=== PATIENT | male | born 1985 | race African-American/Black ===

== ENCOUNTER 2018-04-18 09:08 | Emergency (ER) | payer SELFPAY ==
[~2018-04-18] VITALS: Ht 193 cm; Wt 118.2 kg
[~2018-04-18 09:08] MED LIST: AMOXICILLIN500 MG PO; TAM75CAP PO
[2018-04-18] MEDS ORDERED: PERMETHRIN5 % EX ×2 (09:53→09:55)
[2018-04-18] MEDS ORDERED: BENADRYL25 M1 PO (09:53)
[2018-04-18 10:00] VITALS: BP 132/77
== END 2018-04-18 10:00 | disposition home or self-care (01) | DRG 607 ==
LOC: ED 09:08
DX: R23.8 Other skin changes (principal)

== ENCOUNTER 2018-08-04 21:18 | Emergency (ER) | payer SELFPAY ==
[~2018-08-04] VITALS: Ht 193 cm; Wt 118.0 kg
[~2018-08-04 21:18] MED LIST changes: +BENADRYL25 M1 PO; +PERMETHRIN5 % EX
[2018-08-04 22:00] VITALS: BP 148/92
[2018-08-04] MEDS ORDERED: GUAIASORB DM1 ML PO (22:00)
== END 2018-08-04 22:10 | disposition home or self-care (01) | DRG 605 ==
LOC: ED 21:18
DX: S60.222A Contusion of left hand, initial encounter (principal); J40 Bronchitis, not specified as acute or chronic; W22.8XXA Striking against or struck by other objects, initial encounter; Y93.89 Activity, other specified

== ENCOUNTER 2019-07-10 01:39 | Emergency (ER) | payer SELFPAY ==
[~2019-07-10] VITALS: Ht 193 cm; Wt 104.5 kg
[~2019-07-10 01:39] MED LIST changes: +GUAIASORB DM1 ML PO
[2019-07-10 02:00] LABS: IMMATURE GRANULOCYTES 0.2 % (0.0-5.0); MEAN CORPUSCULAR HGB 27.1 pG CALC (26.0-32.0); MEAN CORPUSCULAR HGB CONC 31.8 g/L CALC (32.0-36.0); NEUT# 1.3 thou/uL (1.82-7.42); RED BLOOD COUNT 4.9 mill/uL (4.70-6.10); RED CELL DISTRI WIDTH 14.5 % (11.5-15.5)
[2019-07-10 02:01] LABS: HEMATOCRIT 41.8 % (39.0-50.0); HEMOGLOBIN 13.3 g/dl (14.0-18.0); MEAN CELL VOLUME 85.3 fL CALC (80.0-100.0)
[2019-07-10 02:12] LABS: ALBUMIN 4.5 g/dL (3.2-5.0); ALKALINE PHOSPHATASE 58 u/l (38-126); ANION GAP 12 (6-22 (CALC)); BILIRUBIN, TOTAL 0.4 mg/dL (0.0-1.4); BUN 12 mg/dL (9-20); BUN/CREATININE RATIO 10 (12-20 (CALC)); CARBON DIOXIDE 30 mmol/l (22-30); CHLORIDE 107 mmol/l (95-108); CREATININE 1.2 mg/dL (0.7-1.3); ETHYL ALCOHOL 0 mg/dl (0-30); GFR > 60 ML/MIN (>=60 (CALC)); GFR FOR AFR.AMER. > 60 ML/MIN (>=60 (CALC)); POTASSIUM 3.7 mmol/l (3.5-5.1); SGOT/AST 28 u/l (17-59); SODIUM 145 mmol/l (137-146); TOTAL PROTEIN 7.6 g/dL (6.3-8.2)
[2019-07-10 02:14] LABS: ACT PARTIAL THROMBO TIME 22.7 SECONDS (20.0-32.5); PROTHROMBIN TIME 10.1 SECONDS (9.0-12.5)
[2019-07-10 02:22] VITALS: BP 147/90
== END 2019-07-10 02:22 | DRG 605 ==
LOC: ED 01:39
DX: S31.111A Laceration without foreign body of abdominal wall, left upper quadrant without penetration into peritoneal cavity, initial encounter (principal); X99.1XXA Assault by knife, initial encounter; Y92.009 Unspecified place in unspecified non-institutional (private) residence as the place of occurrence of the external cause

== ENCOUNTER 2024-06-10 18:56 | Emergency (ER) | payer OTHER ==
[~2024-06-10] VITALS: Ht 193 cm; Wt 149.0 kg
[2024-06-11 00:37] VITALS: BP 154/94
== END 2024-06-11 00:37 | disposition home or self-care (01) | DRG 563 ==
LOC: ED 18:56
DX: S96.912A Strain of unspecified muscle and tendon at ankle and foot level, left foot, initial encounter (principal); X50.0XXA Overexertion from strenuous movement or load, initial encounter; Y93.89 Activity, other specified; Y92.009 Unspecified place in unspecified non-institutional (private) residence as the place of occurrence of the external cause

== ENCOUNTER 2024-08-12 10:36 | Emergency (ER) | payer OTHER ==
[~2024-08-12] VITALS: Ht 193 cm; Wt 99.7 kg
[2024-08-12 10:43] VITALS: BP 147/87
[2024-08-12 10:45] VITALS: BP 141/88
[2024-08-12] MEDS ORDERED: PREDNISONE20 MG PO (10:56)
[2024-08-12] MEDS ORDERED: VALACYCLOVIR HYD1 GM PO (10:56)
[2024-08-12 11:00] VITALS: BP 133/88
[2024-08-12 11:15] VITALS: BP 136/87
[2024-08-12 11:18] VITALS: BP 133/88
== END 2024-08-12 11:37 | disposition home or self-care (01) | DRG 74 ==
LOC: ED 10:36
DX: G51.0 Bell's palsy (principal)

== ENCOUNTER 2025-01-03 08:12 | Emergency (ER) | payer OTHER ==
[~2025-01-03] VITALS: Ht 193 cm; Wt 100.0 kg
[2025-01-03] VITALS (8 sets, daily range): BP systolic 146–178; BP diastolic 101–121
[~2025-01-03 08:12] MED LIST changes: +PREDNISONE20 MG PO; +VALACYCLOVIR HYD1 GM PO
[2025-01-03] MEDS ORDERED: cloNIDine HCL 0.1 MG/TAB PO ONE (10:30)
[2025-01-03] MEDS ORDERED: AMLODIPINE BESY10 MG PO (10:35)
[2025-01-03] MEDS ORDERED: AMOX/K CLAV875 M1 PO (10:37)
== END 2025-01-03 11:04 | disposition home or self-care (01) | DRG 153 ==
LOC: ED 08:12
DX: J06.9 Acute upper respiratory infection, unspecified (principal); I10 Essential (primary) hypertension; Z20.822 Contact with and (suspected) exposure to COVID-19